=== PATIENT | female | born 1955 | race Caucasian/White ===

== ENCOUNTER → 2016-11-14 | Outpatient (CLI) | payer BC ==
[~2016-11-14] MED LIST: ALPR.25T PO; AMIT25TA9 PO; AMIT50TA3; ASP81TEC PO; ATOR20TA66; BUPR150T7; CLIN300C11; DULO30CA PO; GABA-488 PO; HYDR-3812 PO; HYDR12.56; LD5O35 TP; LEVO88TA54; LVT.088T PO; METO100T2; MTP100TCR PO; PRAV80TA2 PO; SERT100T8; TRAM50TA2; TRM50T PO; ZLP10T PO
[2016-11-14 11:01] LABS: MEAN PLATELET VOLUME 10.6 FL (7.4-10.4); RED BLOOD COUNT 5.17 10^6/uL (4.35-5.85); RED CELL DISTRIBUTION WIDTH 14.6 % (10.0-14.5); WHITE BLOOD COUNT 7.2 10^3/uL (4.3-11.0)
--- NOTE | 2016-11-14 15:47 | Diagnostic Imaging Report ---
Two views of the right hip. INDICATION: Right hip pain. FINDINGS: There is a deformity along the right femoral head and neck with remodeling and flattening of the femoral head. 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 There is possible component of old injury or collapse from avascular necrosis of the femoral head. No definite acute fracture. Degenerative changes in the right hip with subchondral sclerosis and oypc-[id number]-[id number] joint space narrowing seen. No dislocation or radiopaque foreign body. IMPRESSION: Chronic-appearing deformity in the right femoral head and neck, degenerative change, and background mild shallow dysplastic acetabulum. No definite acute process is seen. If the symptoms persist, consider evaluation with CT scan. Dictated by: Dictated on workstation # [id number]
== END ==
LOC: RAD 10:41
PROVIDERS: ATTEND Nurse Practitioner Family
DX: M16.11 Unilateral primary osteoarthritis, right hip (principal)
CPT/HCPCS: 36415; 73502; 85027; 85652

== ENCOUNTER 2018-03-02 05:39 | Outpatient (CLI) | payer BC ==
[~2018-03-02] VITALS: Ht 160 cm; Wt 82.1 kg
[~2018-03-02 05:39] MED LIST changes: +ACHD5005 PO; -AMIT50TA3; +AMIT50TA3 PO; -HYDR-3812 PO; +METO100T12 PO; -METO100T2
[2018-03-02] MEDS ORDERED: BUPR300T51 PO (15:24)
[2018-03-02] MEDS ORDERED: LISI40TA PO (15:24)
[2018-03-02] MEDS ORDERED: AMLO5TAB7 PO (15:24)
[2018-03-02] MEDS ORDERED: ROSU40TA PO (15:24)
[2018-03-02] MEDS ORDERED: LEVO100T7 PO (15:24)
[2018-03-02] MEDS ORDERED: SERT100T PO (15:24)
== END 2018-03-02 15:35 | disposition home or self-care (01) ==
LOC: PREOP 05:39
PROVIDERS: ATTEND Surgery
DX: Z01.818 Encounter for other preprocedural examination (principal)

== ENCOUNTER 2018-03-09 07:23 | Day surgery (SDC) | payer BC ==
[~2018-03-09] VITALS: Ht 160 cm; Wt 82.1 kg
[~2018-03-09 07:23] MED LIST changes: +AMLO5TAB7 PO; +BUPR300T51 PO; +LEVO100T7 PO; +LISI40TA PO; +ROSU40TA PO; +SERT100T PO
[2018-03-09] MEDS ORDERED: LACTATED RINGERS 1,000 ML IV ONE (07:31)
[2018-03-09] MEDS ORDERED: ceFAZolin 2 GM IV Premixed 50 ML ONE (07:43)
[2018-03-09] MEDS ORDERED: PROPOFOL INJECTION 50 ML IV ONE (07:49)
[2018-03-09] MEDS ORDERED: LACTATED RINGERS 1,000 ML IV STA (07:49)
[2018-03-09 07:55] VITALS: BP 145/87
[2018-03-09] MEDS ORDERED: ceFAZolin 2 GM/50 ML PRE-MIX IVPB IV ONE (08:15)
[2018-03-09] MEDS ORDERED: CATHETER FLUSH 10 ML SYR IV PRN (08:15)
--- NOTE | 2018-03-09 09:20 | Progress Note-Post Operative ---
Post-Operative Progess Note Surgeon (s)/Grout Machine Tender (s) Surgeon RENE POWERS DO Grout Machine Tender: na Pre-Operative Diagnosis screening colonoscopy Post-Operative Diagnosis normal colon Procedure & Operative Findings Date of Procedure 03/09/18 Procedure Performed/Findings colonoscopy Anesthesia Type per warehousing technician Estimated Blood Loss Estimated blood loss (mL): none Specimens/Packing Specimens Removed na RENE POWERS DO Mar 09, 2018 09:20
--- NOTE | 2018-03-09 09:24 | Discharge Inst-Simple/Standard ---
Discharge Inst-Standard Patient Instructions/Follow Up Plan of Care/Instructions/FU: Repeat colonoscopy in 10 years unless family history of colon cancer or personal history of colon polyps then 5 years. Any issues before then be seen at that time. Activity as Tolerated: Yes Discharge Diet: Regular Diet RENE POWERS DO Mar 09, 2018 09:24
[2018-03-09 09:30] VITALS: BP 117/60
[2018-03-09 09:55] VITALS: BP 122/63
[2018-03-09 10:00] VITALS: BP 122/63
--- NOTE | 2018-03-09 10:46 | Anesthesia-General Post-Op ---
MAC Patient Condition Mental Status/LOC: Same as Preop Cardiovascular: Satisfactory Nausea/Vomiting: Absent Respiratory: Satisfactory Pain: Controlled Complications: Absent Post Op Complications Complications None Follow Up Care/Instructions Patient Instructions None needed. Anesthesiology Discharge Order Discharge Order Patient is doing well, no complaints, stable vital signs, no apparent adverse anesthesia problems. No complications reported per nursing. CHAPIS TRUONG CRNA Mar 09, 2018 10:46
--- NOTE | 2018-03-09 13:21 | OPERATIVE REPORT ---
DATE OF SERVICE: 03/09/2018 PREOPERATIVE DIAGNOSIS: Screening colonoscopy. POSTOPERATIVE DIAGNOSIS: Normal colon. PROCEDURE: Colonoscopy. SURGEON: Rene Leyva DO ANESTHESIA: Per PIT MANAGER. ESTIMATED BLOOD LOSS: None. COMPLICATIONS: None. INDICATIONS: The patient is a 62-year-old female due for screening colonoscopy. She occasionally has some constipation issues. She understands the risks and benefits of the procedure and wished to proceed with the procedure. Consent was signed on the chart. DESCRIPTION OF PROCEDURE: The patient was taken to the endoscopy suite, placed in the left lateral recumbent position. Timeout was performed. Digital rectal exam was performed. There were no palpable polyps, masses or ulcerations. The scope was inserted in the rectum and advanced all the way to the cecum with minimal difficulty. Prep was adequate. The scope was then slowly retracted back. There were no polyps, masses or ulcerations within the cecum, ascending, transverse, descending and sigmoid colon. Once in the rectum, scope was retroflexed noting no other pathology. Scope was returned to its normal position, slowly withdrawn until completely removed. The patient tolerated the procedure well without any complications. She was taken to the recovery room in stable condition. RECOMMENDATIONS: The patient will need repeat colonoscopy in 10 years unless family history of colon cancer, personal history of colon polyps, which will then be in 5 years. If she has any problems prior to that, she should be reevaluated at that time. Job ID: [id number] DocumentID: [id number] Dictated Date: 03/09/2018 09:26:29 Circulating Process Inspector Date: 03/09/2018 13:20:40 Dictated By: RENE LEYVA DO
== END 2018-03-09 10:00 | disposition home or self-care (01) ==
LOC: ENDO 07:23
PROVIDERS: ATTEND Surgery
DX: Z12.11 Encounter for screening for malignant neoplasm of colon (principal); I10 Essential (primary) hypertension; K21.9 Gastro-esophageal reflux disease without esophagitis; Z79.899 Other long term (current) drug therapy

== ENCOUNTER → 2019-03-18 | Outpatient (CLI) | payer BC ==
[~2019-03-18] MED LIST changes: -AMLO5TAB7 PO; +AMLO5TAB9 PO
--- NOTE | 2019-03-18 17:06 | Diagnostic Imaging Report ---
CLINICAL HISTORY: Pain with forward and backward motions of the neck for approximately 2 weeks. No known injury. COMPARISON: CT neck soft tissues on 03/25/2016. TECHNIQUE: 4 views of the cervical spine. FINDINGS: There is no acute fracture or dislocation of the cervical spine. Alignment is anatomic. Included views of the dens demonstrate no acute fracture or dislocation. Vertebral body heights are maintained. Multilevel degenerative changes are present in the cervical spine with disc height loss, marginal osteophytes, and uncovertebral arthropathy, greatest at C4-C5 and C5-C6. Soft tissues of the neck are unremarkable. IMPRESSION: 1. No acute fracture or dislocation in the cervical spine. 2. Degenerative changes of the cervical spine, greatest at C4-C5 and C5-C6. Dictated by: Dictated on workstation # [id number]
== END ==
LOC: RAD 13:41
PROVIDERS: ATTEND Family Medicine
DX: M47.812 Spondylosis without myelopathy or radiculopathy, cervical region (principal)
CPT/HCPCS: 72040

== ENCOUNTER → 2019-08-29 | Outpatient (CLI) | payer BC ==
[~2019-08-29] MED LIST changes: -BUPR300T51 PO; +BUPR300T98 PO; -TRAM50TA2; +TRM50T
--- NOTE | 2019-08-29 14:37 | Diagnostic Imaging Report ---
INDICATION: Cough and chest congestion. PA and lateral views of the chest obtained with comparison made study of 04/28/2012. FINDINGS: Heart size and pulmonary vascularity are within normal limits, and the lungs are clear, bilaterally. IMPRESSION: Unremarkable chest. Dictated by: Dictated on workstation # [id number]
== END ==
LOC: RAD 14:18
PROVIDERS: ATTEND Family Medicine
DX: R05 Cough (principal)
CPT/HCPCS: 71046

== ENCOUNTER → 2020-03-06 | Outpatient (CLI) | payer MEDICARE ==
--- NOTE | 2020-03-06 11:09 | Diagnostic Imaging Report ---
CLINICAL INDICATION: Patient states she has been having neck and base of skull pain. Recent fall. EXAM: MRI of the brain performed without IV contrast. Sequences include axial DWI, ADC map, axial T2, axial FLAIR, axial T1, coronal gradient echo, and sagittal T1. COMPARISON: Head CT without contrast dated 04/29/2012. FINDINGS: There is no evidence of acute cerebral infarct, intracranial hemorrhage, or gross mass effect. The brain parenchymal volume appears appropriate for patient's age. There is a 4 mm focal area of low gradient echo signal and low T2 signal involving the medial left temporal lobe region. There are a few focal areas of increased T2 signal involving both cerebral hemispheres and posterior right periventricular region which may be related to mild chronic small vessel ischemic disease. There is normal moore-white matter distinction. There is no significant midline shift or herniation. The [place] vascular structures show no gross abnormality as visualized. The pituitary gland, sella, and suprasellar regions are unremarkable as visualized. There is no evidence of hydrocephalus. The basal cisterns are unremarkable. Postop changes to the right globe which may be related to lens implant. Otherwise, the skull, extracranial soft tissue, and orbits are unremarkable. There are small areas of mucosal thickening involving both maxillary sinuses. The temporal bones show no significant abnormality. IMPRESSION: 1. There is no evidence of an acute intracranial process. 2. Mild age related brain parenchymal changes. 3. There is a 4 mm focal area of low gradient echo signal involving the medial left temporal lobe which may represent an area of remote microhemorrhage or cavernous malformation. 4. Mild paranasal sinus disease. Dictated by: Dictated on workstation # [id number]
== END ==
LOC: RAD 09:02
PROVIDERS: ATTEND Family Medicine
DX: J34.89 Other specified disorders of nose and nasal sinuses (principal); G93.89 Other specified disorders of brain; H53.9 Unspecified visual disturbance; M47.22 Other spondylosis with radiculopathy, cervical region; R29.898 Other symptoms and signs involving the musculoskeletal system; R26.9 Unspecified abnormalities of gait and mobility; W19.XXXA Unspecified fall, initial encounter
CPT/HCPCS: 70551

== ENCOUNTER → 2020-11-06 | Outpatient (CLI) | payer MEDICARE ==
[~2020-11-06] MED LIST changes: +AMLO-250 PO; -AMLO5TAB9 PO; +BUPR150T24; -BUPR150T7; -CLIN300C11; +CLIN300C12; -LISI40TA PO; +LISI40TA9 PO; +SERT-414; -SERT100T8
--- NOTE | 2020-11-06 12:10 | Diagnostic Imaging Report ---
PROCEDURE: CT abdomen and pelvis without contrast. TECHNIQUE: Multiple contiguous axial images were obtained through the abdomen and pelvis without the use of intravenous contrast. Auto Exposure Controls were utilized during the CT exam to meet ALARA standards for radiation dose reduction. INDICATION: Left lower abdominal pain and cramping. No prior studies are available for comparison. The lung bases are clear. The liver is unremarkable. The gallbladder is surgically absent. No biliary ductal dilatation is seen. Pancreas and spleen are unremarkable. No adrenal mass is detected. Kidneys are unremarkable. No calculi are identified. There is no hydronephrosis. Aorta is partially calcified but nonaneurysmal. No central retroperitoneal or mesenteric lymphadenopathy is detected. The small and large bowel loops are normal caliber. There is no obstruction. No inflammatory changes are seen in the abdomen or pelvis. There is no free fluid or fluid collection identified. The bladder is decompressed. There are postsurgical changes of right hip arthroplasty. Bony structures appear nonacute. IMPRESSION: Essentially unremarkable noncontrast CT of the abdomen and pelvis apart from moderate stool in the colon. No acute feature is identified. Dictated by: Dictated on workstation # [id number]
== END ==
LOC: RAD 10:28
PROVIDERS: ATTEND Family Medicine
DX: Z12.31 Encounter for screening mammogram for malignant neoplasm of breast (principal); R19.7 Diarrhea, unspecified; R10.9 Unspecified abdominal pain
CPT/HCPCS: 74176; 77063; 77067; 87015; 87045; 87046; 87324; 87328; 87329; 87449; 87899; 89055

== ENCOUNTER → 2020-12-13 | Outpatient (CLI) | payer MEDICARE ==
--- NOTE | 2020-12-13 15:27 | Diagnostic Imaging Report ---
Indication: Left upper abdominal pain and diarrhea. Time of exam: 11:34 AM Bowel gas pattern is nonobstructed. There is moderate stool in the right colon and transverse colon. There are surgical clips in the right upper quadrant likely from cholecystectomy. No pathologic consultations are seen. There is no free air. Postop changes right hip are noted. Impression: Moderate stool. Study is otherwise unremarkable. No acute feature is detected. Dictated by: Dictated on workstation # [id number]
== END ==
LOC: RAD 11:20
PROVIDERS: ATTEND Family Medicine
DX: R10.12 Left upper quadrant pain (principal); R19.7 Diarrhea, unspecified
CPT/HCPCS: 74019

== ENCOUNTER 2021-04-18 05:32 | Outpatient (RCR) | payer MEDICARE ==
[~2021-04-18] VITALS: Ht 157.5 cm; Wt 82.0 kg
[~2021-04-18 05:32] MED LIST changes: +CLIN-144; -CLIN300C12
== END 2021-04-18 12:54 | disposition home or self-care (01) ==
LOC: PREOP 05:32
PROVIDERS: ATTEND Surgery
DX: Z01.812 Encounter for preprocedural laboratory examination (principal); R10.32 Left lower quadrant pain; Z20.822 Contact with and (suspected) exposure to COVID-19
CPT/HCPCS: 87635

== ENCOUNTER → 2021-04-22 | Day surgery (SDC) | payer MEDICARE ==
[2021-04-22] VITALS (8 sets, daily range): BP systolic 115–171; BP diastolic 72–99
[~2021-04-22] VITALS: Ht 157.5 cm; Wt 82.0 kg
[~2021-04-22] MED LIST changes: +HURRICAINE EXT TUBE (BENZOCAINE) XX PRN; +LACTATED RINGERS 1,000 ML IV STA; +MIDAZOLAM 2 MG/2 ML (VERSED) VIAL ONE; +PROPOFOL INJECTION 50 ML IV ONE
--- NOTE | 2021-04-22 08:23 | Progress Note-Pre Operative ---
Pre-Operative Progress Note H&P Reviewed The H&P was reviewed, patient examined and no changes noted. Time Seen by Provider: 08:19 Date H&P Reviewed: Apr 22, 2021 Time H&P Reviewed: 08:19 Pre-Operative Diagnosis: LLQ pain, Heartburn MARCUS LORENZO DO Apr 22, 2021 08:23
--- NOTE | 2021-04-22 10:46 | Progress Note-Post Operative ---
Post-Operative Progess Note Surgeon (s)/Associate Professor Of Biology (s) Surgeon MARCUS LORENZO DO Associate Professor Of Biology: none Pre-Operative Diagnosis LLQ pain, Heartburn Post-Operative Diagnosis Gastritis Esophagitis Large Hiatal hernia Procedure & Operative Findings Date of Procedure 04/22/21 Procedure Performed/Findings EGD with bx PROCEDURE NOTE: After informed consent was obtained, the patient was brought to the endoscopy suite, placed in bed in left lateral decubitus position. She was administered IV sedation by the VICE PRESIDENT CORPORATE COMMUNICATIONS who then monitored vitals the entire time, heart rate, blood pressure and pulse ox and the scope was inserted down the mouth through the esophagus into the stomach. Pushed into the stomach, pushed past the antrum into the duodenum. Duodenum looked good. Pulled back and saw some gastritis did a biopsy of the antrum. Then retroflexed the scope and did another biopsy of the body of the stomach. I also saw a large hiatal hernia, took a picture of this and then pulled the scope into the GE junction. I took a picture of the hiatal hernia and then did a biopsy of the GE junction. Pushed the scope back into the stomach, suctioned all the air out of the stomach. At this point pulled the scope up the esophagus and out the mouth. The patient tolerated the procedure, and she recovered in endoscopy suite. Anesthesia Type IV sedation by VICE PRESIDENT [employer]PORATE COMMUNICATION[employer] Estimated Blood Loss Estimated blood loss (mL): scant Specimens/Packing Specimens Removed antral bx body of stomach bx GE jxn bx MARCUS LORENZO DO Apr 22, 2021 10:46
--- NOTE | 2021-04-22 10:48 | Endoscopy Discharge Instruct ---
Endo Procedure/Findings Findings 1.: Gastritis 2.: Hiatal Hernia 3.: Other Findings (Esophagitis) Discharge Instructions - Activity: You might feel a little sleepy until tomorrow. This is due to the medicine you received to relax you. Until tomorrow, you should: NOT drive a car, operate machinery or power tools. NOT drink any alcoholic beverages. NOT make any important decisions or sign importortant papers. Do not return to work until tomorrow, unless otherwise instructed. Resume previous activities tomorrow. Diet: Start by taking liquids. If you tolerate liquids, advance to solid food. 1.: EGD in 1 year Notify Physician - If you experience excessive bleeding, unusual abdominal pain, fever, or chest pain, contact your doctor immediately. MARCUS LORENZO DO Apr 22, 2021 10:48
--- NOTE | 2021-04-22 12:43 | Anesthesia-General Post-Op ---
MAC Patient Condition Mental Status/LOC: Same as Preop Cardiovascular: Satisfactory Nausea/Vomiting: Absent Respiratory: Satisfactory Pain: Controlled Complications: Absent Post Op Complications Complications None Follow Up Care/Instructions Patient Instructions None needed. Anesthesiology Discharge Order Discharge Order Patient is doing well, no complaints, stable vital signs, no apparent adverse anesthesia problems. No complications reported per nursing. PARIS HARVEY CRNA Apr 22, 2021 12:43
== END | disposition home or self-care (01) ==
LOC: ENDO 07:44
PROVIDERS: ATTEND Surgery
DX: K29.50 Unspecified chronic gastritis without bleeding (principal); K22.70 Barrett's esophagus without dysplasia; K44.9 Diaphragmatic hernia without obstruction or gangrene; I10 Essential (primary) hypertension; E78.00 Pure hypercholesterolemia, unspecified; E78.5 Hyperlipidemia, unspecified; E07.9 Disorder of thyroid, unspecified; F43.10 Post-traumatic stress disorder, unspecified; F41.9 Anxiety disorder, unspecified; F32.A Depression, unspecified; Z96.641 Presence of right artificial hip joint; Z79.890 Hormone replacement therapy; Z79.899 Other long term (current) drug therapy

== ENCOUNTER 2021-06-05 05:35 | Outpatient (CLI) | payer MEDICARE ==
[~2021-06-05] VITALS: Ht 157.4 cm; Wt 68.0 kg
[~2021-06-05 05:35] MED LIST changes: -HURRICAINE EXT TUBE (BENZOCAINE) XX PRN; -LACTATED RINGERS 1,000 ML IV STA; -MIDAZOLAM 2 MG/2 ML (VERSED) VIAL ONE; -PROPOFOL INJECTION 50 ML IV ONE
[2021-06-05] MEDS ORDERED: OMEP20TA33 PO (16:23)
== END 2021-06-05 16:24 | disposition home or self-care (01) ==
LOC: PREOP 05:35
PROVIDERS: ATTEND Surgery
DX: Z01.818 Encounter for other preprocedural examination (principal)

== ENCOUNTER 2021-06-12 06:50 | Day surgery (SDC) | payer MEDICARE ==
[~2021-06-12] VITALS: Ht 157.4 cm; Wt 68.0 kg
[2021-06-12] VITALS (11 sets, daily range): BP systolic 127–169; BP diastolic 75–96
[~2021-06-12 06:50] MED LIST changes: +OMEP20TA33 PO
[2021-06-12] MEDS ORDERED: ONDANSETRON 4 MG/2 ML (SDV) Z0FRAN ONE (07:13)
[2021-06-12] MEDS ORDERED: proPOfol 200 MG/20 ML (DIPRIVAN) VIAL IV ONE (07:13)
[2021-06-12] MEDS ORDERED: ROCURONIUM 10 MG/ML 5 ML SYRINGE IV ONE ×2 (07:13→09:43)
[2021-06-12] MEDS ORDERED: MIDAZOLAM 2 MG/2 ML (VERSED) VIAL ONE (07:13)
[2021-06-12] MEDS ORDERED: fentaNYL INJ 100 MCG/2 ML AMP ONE (07:13)
[2021-06-12] MEDS ORDERED: SEVOFLURANE (ULTANE) 15 ML INHAL SOLN ONE (07:13)
[2021-06-12] MEDS ORDERED: LIDOCAINE PF 2% 5 ML (XYLOCAINE) VIAL ONE (07:13)
[2021-06-12] MEDS ORDERED: ceFAZolin 2 GM IV Premixed 50 ML IV ONE (07:15)
[2021-06-12] MEDS: LACTATED RINGERS 1,000 ML IV PRN ×2 (07:16→09:30)
[2021-06-12] MEDS ORDERED: SUCCINYLCHOLINE INJ 100 MG/5 ML SYR/VIAL ONE (07:18)
[2021-06-12] MEDS ORDERED: LIDOCAINE/EPI 1%-1:200,000 (XYLOCAINE) 30 ML VIAL ONE (07:30)
[2021-06-12] MEDS ORDERED: MIDAZOLAM 2 MG/2 ML (VERSED) VIAL IV ONE (08:15)
--- NOTE | 2021-06-12 08:20 | Progress Note-Pre Operative ---
Pre-Operative Progress Note H&P Reviewed The H&P was reviewed, patient examined and no changes noted. Time Seen by Provider: 08:16 Date H&P Reviewed: Jun 12, 2021 Time H&P Reviewed: 08:16 Pre-Operative Diagnosis: Hiatal Hernia MARCUS LORENZO DO Jun 12, 2021 08:20
[2021-06-12] MEDS ORDERED: GLYCOPYRROLATE 0.2 MG/ML (ROBINUL) 2 ML VIAL ONE ×2 (08:50→11:19)
[2021-06-12] MEDS ORDERED: HYDROmorphone 2 MG/ML VIAL (DILAUDID) ONE (08:59)
[2021-06-12] MEDS ORDERED: PHENYLEPHRINE 100 MCG/ML 10 ML (ANESTHESIA) SYR ONE (09:15)
[2021-06-12] MEDS ORDERED: ONDANSETRON 4 MG/2 ML (SDV) Z0FRAN IVP PRN ×2 (11:30→11:45)
[2021-06-12] MEDS ORDERED: HYDROmorphone 2 MG/ML VIAL (DILAUDID) IV ONE (11:45)
[2021-06-12] MEDS: ACETAMINOPHEN 500 MG TAB (TYLENOL) PO SCH ×2 (12:34→19:38)
[2021-06-12] MEDS: LACTATED RINGERS 1,000 ML IV SCH ×2 (12:34→21:33)
[2021-06-12] MEDS: morphine INJ 4 MG/ML 1 ML (VIAL/SYRINGE) IVP PRN ×4 (13:18→21:52)
[2021-06-12] MEDS ORDERED: ROSU40TA PO ×2 (15:21)
[2021-06-12] MEDS ORDERED: METO100T12 PO ×2 (15:21)
[2021-06-12] MEDS ORDERED: BUPR300T43 PO ×2 (15:21)
[2021-06-12] MEDS ORDERED: FAMO20TA5 PO ×2 (15:21)
[2021-06-12] MEDS ORDERED: LEVO100T7 PO ×2 (15:21)
[2021-06-12] MEDS ORDERED: AMIT50TA3 PO ×2 (15:21)
[2021-06-12] MEDS ORDERED: ESOM20CA37 PO ×2 (15:21)
[2021-06-12] MEDS ORDERED: SERT-414 PO ×2 (15:21)
[2021-06-12] MEDS: ceFAZolin 2 GM IV Premixed 50 ML IV SCH (15:53)
[2021-06-13] MEDS: ceFAZolin 2 GM IV Premixed 50 ML IV SCH
[2021-06-13 00:45] VITALS: BP 138/84
[2021-06-13] MEDS: ACETAMINOPHEN 500 MG TAB (TYLENOL) PO SCH (03:45)
[2021-06-13 04:04] VITALS: BP 134/80
--- NOTE | 2021-06-13 05:03 | OPERATIVE REPORT ---
DATE OF SERVICE: PREOPERATIVE DIAGNOSES: Hiatal hernia, gastroesophageal reflux disease. POSTOPERATIVE DIAGNOSES: Hiatal hernia, gastroesophageal reflux disease. PROCEDURE: Hiatal hernia repair with a 270-degree Toupet wrap for antireflux procedure. SURGEON: Marcus Schumacher DO MANNEQUIN WIG MAKER: Paul Leyva DO. ANESTHESIA: General endotracheal tube. SPECIMENS: None. BLOOD LOSS: Less than 20 mL. FLUIDS: Per anesthesia. POSTOPERATIVE CONDITION: Stable. INDICATION FOR PROCEDURE: The patient is a 65-year-old female who had an EGD performed, which showed hiatal hernia. She has had constant heartburn, not controlled with medications. She had a swallow study performed, which showed hiatal hernia and reflux, wanted to get this repaired. FINDINGS: The patient had a large hiatal hernia with a large amount of stomach and actually fat in the hernia itself. This was removed out of the chest. PROCEDURE NOTE: After informed consent was obtained, the patient was brought to the operating room. She was placed on the table in supine position. She was sterilely prepped and draped in normal fashion, then started by making a right paramedial incision right over the rectus muscle just lateral to the midline, made an incision with #11 blade, after first infiltrating the skin with local, then made an incision, carried down through the skin into subcutaneous tissue, then deepened down to subcutaneous tissue with Bovie electrocautery down to the fascia. Fascia was incised and then bluntly spread the muscle aside and then bluntly entered the abdomen, placed S retractor and then placed the 12 mm trocar port in with a ____ port and then blew up the balloon to hold this in place, then placed 3 more robotic ports, one about 10 cm to the right side and two 10 cm away from the ____ camera port using local lidocaine, 11-blade for stab incision and then watching as the ports entered the abdomen. Then used another small 5 mm VersaStep port just under the xiphoid but to the left of the falciform ligament using local lidocaine, 11 blade for stab incision and watch the VersaStep come in. Once everything was in position, then placed the patient in severe reverse Trendelenburg 25 degrees and then docked to the robot. Once the robot was docked, had placed a bipolar cautery in the left port, the far left port. The second port on the right side of the patient was the camera and on the left side of the patient two ports, the third port was the vessel seal and then the far port was the Tips-Up ____ grasper to be able to grasp, placed a laparoscopic tooth grasper in the subxiphoid port, held the liver up and clamped it on the diaphragm. At this point, we had good visualization, could see the large hiatal hernia, took a picture of this and then started dissecting, used the ____ to grasp the stomach and pull down towards the foot but up towards the abdominal wall to hold this in place, went through the pars flaccida of the gastrohepatic ligament, identified a left gastric artery that we elected to save, so went above this and below this with the vessel seal. Once we went through this, then able to find the right marisa, found the peritoneum on the right marisa and then with small bites, started going through the peritoneum so that we could get in so we could see the right marisa muscle, then carry this incision up and down, getting along the right marisa, then used the ____ to grasp the hernia sac and started dissecting bluntly into the mediastinum, saw alveolar tissue, the soft tissue indicating we were in the avascular plane, dissecting here along the right side of the esophagus up into the mediastinum, identified the posterior vagus nerve and stayed away from it. We then went to the stomach and grasped the short gastrics about a centimeter away from the stomach, came across the short gastrics with the vessel sealer, clamping, coagulating and transecting and this way working around the small gastrics to go up, then came across the top, angle of His, exposing the left crura as well and then able to come in, identify the anterior vagus nerve, push this down and stayed above this, dissecting into this mediastinum, getting good visualization, taking down on the fibers. Once this was done, then able to get around the esophagus down below, get around it. Pulled this up out of the way and then started dissecting and able to actually we had placed a 4 x 4 Ray-Reymundo to soak up some of the oozing and got this around the esophagus and held this up and then able to dissect under the esophagus, again pushing the vagus nerve out of the way, dissecting right on top of the aorta in the avascular plane, saw some ____ material and getting good release of the hernia sac. There was actually a very large amount of fat on this hernia sac. This was pulled out of the chest and we got good at least 3-4 cm of esophagus down into the abdominal cavity. We had good exposure of the right and left marisa and at this point, then elected to use a 2-0 nonabsorbable V-Loc running from the bottom of the marisa up to just where we got a good closure. There was no kinking of the esophagus. It was not entrapped, appeared to be in good position, ran 2-0 V-Loc up and then down to lock it in place, cut this and then removed this. At this point, then reached under, grabbed the short gastrics and pulled them under the esophagus and then with the bipolar and then used the Tips-Up grasper on the other side, did a shoeshine technique, good motion of the stomach and at this point, then elected to do a 270 Toupet wrap, used 2-0 Ethibond to grasp a small bite of the esophagus and then the stomach on the right side, tied this and then did another one just below this. I then used another 2-0 Ethibond to then wrap the left side, again grasping the stomach and then grasping the esophagus, did 2 bites here to close this. We had a good wrap. Pictures were taken. Good closure of the marisa, again good length of esophagus into the stomach. This appeared to be a good wrap. At this point, I elected to stop, took out the needles, took out the Ray-Tecs, closed the paramedian incision with a Theodore-Uriel needle and then closed the other incisions after irrigating them, closing with 4-0 undyed Monocryl interrupted subcuticular stitches. Area was cleaned and dried, dressings placed. The patient tolerated the procedure. She was transferred to recovery room in stable condition. Sponge, instrument and needle count correct at the end of the case. Dr. Leyva assisted in this case helping to make incisions, close incisions, identify anatomy and hold anatomy out of the way. Job ID: [id number] DocumentID: [id number] Dictated Date: 06/12/2021 18:48:45 Ladies Suit Operator Date: 06/13/2021 01:19:40 Dictated By: MARCUS SCHUMACHER DO
[2021-06-13] MEDS: morphine INJ 4 MG/ML 1 ML (VIAL/SYRINGE) IVP PRN (05:28)
[2021-06-13] MEDS: LACTATED RINGERS 1,000 ML IV SCH ×2 (05:44→10:34)
--- NOTE | 2021-06-13 07:36 | Progress Note - Surgery ---
[facility] [place] MED STUDENT 06/13/21 0736: Subjective Date Seen by a Provider: Jun 13, 2021 Time Seen by a Provider: 07:00 Subjective/Events-last exam Mrs. Duron is sitting up in bed this morning. States she is a bit uncomfortable since the surgery. Rates her pain about a 7. She states that cold water gives her the hiccups and that can cause some reflux for her. States she will try room temperature water. Has not had any nausea or vomiting since the surgery, has not had solid food. He has passed some has but no BM. Has walked back and forth to the bathroom a few times. Review of Systems General: No Chills HEENT: No Head Aches, No Visual Changes Pulmonary: No Dyspnea, No Cough Cardiovascular: No: Chest Pain, Palpitations, Edema Gastrointestinal: Abdominal Pain; No: Nausea, Vomiting, Diarrhea, Constipation, Melena Genitourinary: No Dysuria, No Incontinence, No Hematuria Musculoskeletal: No: leg pain, foot pain Neurological: No: Weakness Objective Exam Vital Signs Date Time Temp Pulse Resp B/P (MAP) Pulse Ox O2 Delivery O2 Flow Rate FiO2 06/13/21 05:58 37.0 06/13/21 04:15 37.0 06/13/21 04:04 37.0 73 16 134/80 (98) 93 Room Air 06/13/21 00:45 37.1 75 18 138/84 (102) 92 Room Air 06/12/21 21:52 36.6 06/12/21 20:00 36.8 72 18 148/80 (102) 96 Room Air 06/12/21 19:40 96 Room Air 06/12/21 18:26 Nasal Cannula 4.00 06/12/21 15:34 36.6 68 16 138/78 (98) 95 Nasal Cannula 3.00 06/12/21 13:45 37.3 66 16 127/75 (92) 95 Room Air 06/12/21 12:35 Nasal Cannula 3 06/12/21 12:25 15 134/78 (96) 96 Nasal Cannula 3 06/12/21 12:20 36.1 12 130/82 (98) 93 Nasal Cannula 3 06/12/21 12:10 Nasal Cannula 3 06/12/21 12:10 16 136/75 (95) 94 Nasal Cannula 3 06/12/21 12:00 20 142/80 (100) 96 OxyMask 10 06/12/21 11:50 18 139/79 (99) 96 OxyMask 10 06/12/21 11:41 10 151/83 (105) 97 OxyMask 10 06/12/21 11:37 38.5 18 162/84 (110) 97 OxyMask 10 06/12/21 11:37 OxyMask 10 I & O 06/13/21 07:00 Intake Total 3890 ml Output Total 675 ml Balance 3215 ml Capillary Refill : General Appearance: No Apparent Distress, WD/WN HEENT: Pharynx Normal, Moist Mucous Membranes Respiratory: Chest Non Tender, Lungs Clear, Normal Breath Sounds, No Accessory Muscle Use, No Respiratory Distress Cardiovascular: Regular Rate, Rhythm, No Edema, Normal Peripheral Pulses Peripheral Pulses: 2+ Dorsalis Pedis (R), 2+ Left Dors-Pedis (L), 2+ Radial Pulses (R), 2+ Radial Pulses (L) Gastrointestinal: normal bowel sounds, soft, tenderness, other (Pts surgical incisions are glued shut, no erythema or drainage from any of the sites, no bruising or other abnormalities noted on abdomen) Extremity: Normal Capillary Refill, Normal Inspection, Non Tender, No Calf Tenderness, No Pedal Edema Neurologic/Psychiatric: Alert, Oriented x3, Normal Mood/Affect Skin: Normal Color, Warm/Dry Assessment/Plan Assessment/Plan Admission Diagonsis Hiatal Hernia Repair Assessment/Plan S/P Hiatal Hernia Repair Reflux Pain is being managed with morphine, pt states that she is doing okay and didn't think that she needed any changed to pain meds. When drinking cold water she got hiccups that also caused a bit of reflux. She already is on PPI, suggested that she try room temperature water. If she does okay with water she could move to Jello or broth, then soft foods. She isn't having nausea or vomiting. She is passing gas, no BM yet but if she doesn't have one may give stool softener. No signs of infection or bleeding post surgery but will continue to monitor. ROMERO LORENZO DO 06/13/21 1051: Subjective Time Seen by a Provider: 10:15 Subjective/Events-last exam Pt seen and examined, states feeling better compared to earlier this am. Tolerating clears and wants to go home. Review of Systems General: No Chills HEENT: No Head Aches, No Visual Changes Pulmonary: No Dyspnea, No Cough Gastrointestinal: No: Nausea, Vomiting, Abdominal Pain Objective Exam General Appearance: No Apparent Distress, WD/WN Respiratory: Lungs Clear, Normal Breath Sounds, No Accessory Muscle Use, No Respiratory Distress Cardiovascular: Regular Rate, Rhythm, No Murmur Gastrointestinal: normal bowel sounds, soft, tenderness, other (Pts surgical incisions are glued shut, no erythema or drainage from any of the sites, no bruising or other abnormalities noted on abdomen) Assessment/Plan Assessment/Plan Assessment/Plan S/P Hiatal Hernia Repair Reflux Pain is better managed now with oral pain meds. Continue PPI and clear liquids for 2 weeks, will D/C home today. Supervisory-Addendum Brief Verification & Attestation Participated in pt care: history, MDM, physical Personally performed: exam, history, MDM, supervision of care Care discussed with: Medical Student Procedures: n/a Verification and Attestation of Medical Student E/M Service A medical student performed and documented this service. I then reviewed and verified all information documented by the medical student and made modifications to such information, when appropriate. I personally performed a physical exam, medical decision making and then discussed any differences between the notes and made revisions as necessary to create one note. Romero Lorenzo , 06/13/21 , 10:51 [facility] [employer] Jun 13, 2021 07:36 ROMERO LORENZO DO Jun 13, 2021 10:51
[2021-06-13 08:00] VITALS: BP 136/62
[2021-06-13] MEDS ORDERED: HYDROcodone/APAP 7.5MG-325 MG/15 ML (LORTAB) UDC PO PRN (08:45)
[2021-06-13] MEDS ORDERED: PANTOPRAZOLE 40 MG (PROTONIX) VIAL IVP SCH (09:00)
[2021-06-13] MEDS ORDERED: HYDR15SO6 PO ×2 (10:53)
--- NOTE | 2021-06-13 10:56 | Discharge Inst-Surgical ---
Discharge Inst-Surgical Depart Medication/Instructions New, Converted or Re-Newed RX: Transmitted to Pharmacy Patient Instructions Follow up Appt: Make appointment for 1 week. [phone] Instructions: No lifting greater than 20 pounds. No strenuous activity. May shower in 24 hours, no tub bath or soaking. Use incentive spirometer at home as directed. No Smoking Skin/Wound Care: May remove bandages in am. You need to leave the Dermabond on incision it will fall off on it's own. Symptoms to Report: Appetite Changes, Extremity Discoloration, Numbness/Tingling, Swelling Increased, Bleeding Excessive, Eyesight Changes, Pain Increased, Urine Color Change, Constipation(Persistent), Fever over 101 degree F, Pain/Pressure in chest, Urinating Difficulty, Cough Up/Vomit Blood, Heart Beat Irreg/Pounding, Pain/Pressure in jaw, Cramps in feet or legs, Lightheadedness, Pain/Pressure in shoulder, Diarrhea(Persistent), Memory Changes Suddenly, Questions/Concerns, Weight gain consecutive days, Dizziness/Fainting, Nausea/Vomiting, Shortness of Breath, Weight gain over 2 pounds If questions or concerns contact your physician Or seek help at emergency department. Activity Activity as Tolerated: Yes Activity Instructions: Avoid Stress to Incision Driving Instructions: No Driving/Refer to Dr. Tamez Discharge Diet: Liquid Diet (for 2 weeks) If Any Problems/Questions/Issu: Contact Your Physician, Go to Emergency Room Skin/Wound Care Infection Signs and Symptoms: Increased Redness, Foul Odor of Wound, Increased Drainage, Skin Itchy or Has a Rash, Increased Swelling, Temperature Above 101 F Bathing Instructions: Shower Stitches/Dimitris/Dermabond Dis: Dermabond Ice Pack: Ice On and Off Site MARCUS LORENZO DO Jun 13, 2021 10:56
--- NOTE | 2021-06-13 11:39 | Anesthesia-General Post-Op ---
General Patient Condition Mental Status/LOC: Same as Preop Cardiovascular: Satisfactory Nausea/Vomiting: Absent Respiratory: Satisfactory Pain: Controlled Complications: Absent Post Op Complications Complications None Follow Up Care/Instructions Patient Instructions None needed. Anesthesia/Patient Condition Patient Condition Patient is doing well, no complaints, stable vital signs, no apparent adverse anesthesia problems. No complications reported per nursing. AKIKO OROZCO CRNA Jun 13, 2021 11:39
== END 2021-06-13 11:51 | disposition home or self-care (01) ==
LOC: SDC 06:50 → 4TH 12:40 → SDC 06-13 11:51
PROVIDERS: ATTEND Surgery
DX: K44.9 Diaphragmatic hernia without obstruction or gangrene (principal); K21.9 Gastro-esophageal reflux disease without esophagitis
CPT/HCPCS: 87081

== ENCOUNTER → 2021-11-28 | Outpatient (CLI) | payer MEDICARE ==
[~2021-11-28] MED LIST changes: +BUPR300T43 PO; +ESOM20CA37 PO; +FAMO20TA5 PO; +HYDR15SO6 PO; +SERT-414 PO
--- NOTE | 2021-11-28 17:15 | Diagnostic Imaging Report ---
INDICATION: Right knee pain AP, oblique, lateral views the right knee are obtained. No fracture or acute bony abnormality seen. There is mild patellofemoral spurring and medial joint space narrowing. IMPRESSION: No acute fracture. Mild degenerative findings. Dictated by: Dictated on workstation # [id number]
== END ==
LOC: RAD 16:25
PROVIDERS: ATTEND Family Medicine
DX: M17.11 Unilateral primary osteoarthritis, right knee (principal)
CPT/HCPCS: 73562

== ENCOUNTER → 2021-12-03 | Outpatient (CLI) | payer MEDICARE ==
--- NOTE | 2021-12-03 14:15 | Diagnostic Imaging Report ---
INDICATION: Routine screening. COMPARISON: 11/06/2020. TECHNIQUE: 2D and 3D bilateral screening mammography was performed with CAD. FINDINGS: Scattered fibroglandular densities are identified bilaterally. The parenchymal pattern is stable. No mass or malignant-appearing microcalcifications are identified. The axillae are unremarkable. IMPRESSION: No mammographic features suspicious for malignancy are identified. ACR BI-RADS Category 1: Negative. Result letter will be mailed to the patient. Note: At least 10% of breast cancer is not imaged by mammography. Dictated by: Dictated on workstation # [id number]
--- NOTE | 2021-12-03 16:11 | Diagnostic Imaging Report ---
INDICATION: 66-year-old asymptomatic postmenopausal female COMPARISON: None available FINDINGS: AP Spine L1-L4: [BMD (g/cm2): 0.771] [T-Score: -3.6] [Z-Score: -2.4] [BMD Previous: NA] [BMD % Change: NA] LT Hip Neck: [BMD (g/cm2): 0.615] [T-Score: -3.0] [Z-Score: -1.8] LT Hip Total: [BMD (g/cm2):0.763] [T-Score:-1.9] [Z-Score: -1.0] [BMD Previous: NA] [BMD % Change: NA] *Indicates significant change from prior examination based on 95% confidence level. World Health Organization criteria for BMD interpretation classify patients as Normal (T-score at or above -1.0), Osteopenic (T-score between -1.0 and -2.5) or Osteoporotic (T-score at or below -2.5). LIMITATIONS AND MODIFICATION: Right hip is excluded from assessment due to arthroplasty. FRACTURE RISK (FRAX SCORE): Not applicable as patient meets criteria for osteoporosis. IMPRESSION: 1. Osteoporosis. 2. Baseline examination. 3. See below National Osteoporosis Foundation guidelines on when to potentially initiate pharmacologic therapy. Based on the National Osteoporosis Foundation Guidelines, pharmacologic treatment should be initiated in any of the following, unless clinical conditions suggest otherwise: * Any patient with prior fragility fracture of the hip or vertebrae. A spine fracture indicates 5X risk for subsequent spine fracture and 2X risk for subsequent hip fracture. * Osteoporosis (T-score <-2.5). * Postmenopausal women and men age 50 and older with low bone mass/osteopenia (T-score between -1.0 and -2.5) by DXA and 10-year major osteoporotic fracture greater than 20% or a 10-year probability of hip fracture greater than 3%. These fracture risks are supplied above in the FRAX score, if applicable. * Clinician judgement and/or patient preferences may indicate treatment for people with 10-year fracture probabilities above or below these levels. Dictated by: Dictated on workstation # [id number]
== END ==
LOC: RAD 09:44
PROVIDERS: ATTEND Family Medicine
DX: Z12.31 Encounter for screening mammogram for malignant neoplasm of breast (principal); M81.0 Age-related osteoporosis without current pathological fracture; M85.88 Other specified disorders of bone density and structure, other site; E55.9 Vitamin D deficiency, unspecified; Z78.0 Asymptomatic menopausal state
CPT/HCPCS: 77063; 77067; 77080

== ENCOUNTER → 2023-04-27 | Outpatient (CLI) | payer MEDICARE ==
--- NOTE | 2023-04-28 09:28 | Diagnostic Imaging Report ---
EXAMINATION: 3D bilateral screening mammogram with CAD. INDICATION: Screening. COMPARISON: This study was compared to the prior exams of 12/03/2021 and 11/06/2020. PERSONAL HISTORY: At this time, there are no current complaints. TECHNIQUE: 3D bilateral screening mammogram. The current study was also evaluated with a Computer Aided Detection (CAD) system. FINDINGS: There are scattered areas of fibroglandular density. Overall, there does not appear to have been any significant change when compared to the prior exam. There is no primary or secondary sign of malignancy noted. IMPRESSION: There is no radiographic evidence for malignancy. ACR BI-RADS Category 1: Negative. Result letter will be mailed to the patient. Note: At least 10% of breast cancer is not imaged by mammography. Dictated by: Dictated on workstation # [id number]
== END ==
LOC: RAD 14:36
PROVIDERS: ATTEND Family Medicine
DX: Z12.31 Encounter for screening mammogram for malignant neoplasm of breast (principal)
CPT/HCPCS: 77063; 77067